=== PATIENT | female | born 1965 | race Two or more races ===

== ENCOUNTER 2024-07-11 05:24 | Emergency (ER) | payer MEDICARE, MEDICAID, SELFPAY ==
[2024-07-11 05:25] VITALS: BMI 32.3
[2024-07-11 05:42] VITALS: BP 208/113; PULSE 110; RESP 19; TEMP 36.9; O2SAT 99
--- NOTE | 2024-07-11 05:54 | XR_ITS ---
Examination: PA chest single view TECHNIQUE: Upright PA chest single view Examination time: July 11, 2024 0604 hours Comparison June 02, 2019 INDICATIONS: Chest pain and popping beginning 3 days ago. FINDINGS: Normal heart size Mild ectasia of thoracic aorta. No pneumonia or pulmonary edema The osseous structures are intact IMPRESSION: No pneumonia or pulmonary edema
--- NOTE | 2024-07-11 05:54 | EDRME_ITS ---
Rapid Medical Screening Exam [facility] Arrival date/time: 07/11/24 05:24 58F with history of asthma, HTN, DM, and meth use presents to ED with 3 days of cough and CP. Chief Complaint: Flu Like Symptoms Vital signs: Vital Signs Temperature 98.4 F 07/11/24 05:42 Pulse Rate 110 H 07/11/24 05:42 Respiratory Rate 19 07/11/24 05:42 Blood Pressure 208/113 H 07/11/24 05:42 Pulse Oximetry (%) 99 07/11/24 05:42 Oxygen Delivery Method Room Air 07/11/24 05:42
[2024-07-11] MEDS: ACETAMINOPHEN w/COD 300-30 TABLET 2 TAB PO (06:11)
[2024-07-11] MEDS: predniSONE 20 MG TABLET 40 MG PO (06:15)
[2024-07-11 06:17] VITALS: BP 159/110
--- NOTE | 2024-07-11 06:28 | PD.EDURI ---
Upper Respiratory Inf. RME/HPI General Chief Complaint: Flu Like Symptoms Stated Complaint: COUGH,CHEST PAIN X 3 DAYS Time Seen by Provider: 07/11/24 06:04 Arrival date/time: 07/11/24 05:24 RME / HPI RME / HPI Narrative: 07/11/24 05:24 58F with history of asthma, HTN, DM, and meth use presents to ED with 3 days of cough and CP. This section includes all my notes and documentations, including HPI, PE, and ED course. Bebo Allen MD HPI: 58-year-old female here with about a week history of worsening cough, productive cough, purulent sputum, and dyspnea. And chest tightness with coughing in the past couple days. No fever or chills. No other complaints. ROS: All negative except as documented in HPI. Physical Exam: General: Alert and oriented. Hacking cough noted. High BP noted. Eyes: Conjunctivae and lids clear. ENT: No nasal congestion. Pharynx normal. TM normal bilaterally. Neck: Supple. Heart: RRR. Lungs: No respiratory distress. Good air movement with bilateral rhonchi. Skin: Warm and dry. Neuro: Alert and oriented X 3. I reviewed all diagnostic test results. My interpretation of the chest x-ray is increased bronchial markings. COVID/influenza negative. At this point, diagnoses include lower respiratory infection. Treatment here included prednisone and two Tylenol #3. Significant improvement noted both subjectively and objectively, including BP. Based on my best medical judgment, made decision no further evaluation or treatment indicated at this time. Patient understands and agrees to the discharge instructions customized and printed, see below. Discharge instructions from Dr. Allen: --No physical exertion for 3 days to help rest the lungs. ?-No smoking or exposure to smoking or pets or dust or cold air. --Zithromax to kill the germs causing the bronchitis. --Prednisone to help decrease the swelling in the airways. --Albuterol 2 puffs every 4-6 hours as needed for cough or shortness of breath. --Tramadol for cough or pain. --See a private doctor on 07/15/2024 for recheck and further care, including your high BP. --Seek immediate medical care with worsening or with any concerns. Instrucciones de lina del Dr. Allen: --No hacer maria teresa?n esfuerzo f?sico belkis 3 d?as para ayudar a que los pulmones descansen. --No fumar ni exponerse al humo del tabaco, a las mascotas, al polvo o al aire fr?o. --Zithromax para matar los g?rmenes que causan la bronquitis. --Prednisona para ayudar a disminuir la hinchaz?n de las v?as respiratorias. --Albuterol 2 inhalaciones cada 4-6 horas seg?n sea necesario para la tos o la falta de aire. --Tramadol para la tos o el dolor. --Consulte a un m?dico privado el 08/11/2024 para que le vuelva a hacer un control y le brinde m?s atenci?n, incluida la presi?n arterial lina. --Busque atenci?n m?dica inmediata si la enfermedad empeora o si tiene alguna inquietud. Bebo Allen MD Related Data Home Medications ?Medication ?Instructions ?Recorded ?Confirmed clonidine HCl 0.3 mg tablet 0.3 mg PO BID ##0 05/06/13 08/03/18 acetaminophen 300 mg-codeine 60 mg 1 tab PO QHSPRN 06/01/18 08/03/18 tablet (Tylenol-Codeine #4) amitriptyline 10 mg tablet 10 mg PO QDAY 06/01/18 08/03/18 amlodipine 5 mg tablet 5 mg PO QDAY 06/01/18 08/03/18 baclofen 10 mg tablet 10 mg PO QDAY 06/01/18 08/03/18 chlorthalidone 50 mg tablet 50 mg PO QDAY 06/01/18 08/03/18 duloxetine 60 mg capsule,delayed 60 mg PO QDAY 06/01/18 08/03/18 release ibuprofen 800 mg tablet 800 mg PO TID PRN Pain 06/01/18 08/03/18 metoprolol tartrate 100 mg tablet 100 mg PO BID 06/01/18 08/03/18 omeprazole 20 mg capsule,delayed 20 mg PO QDAY 06/01/18 08/03/18 release ranitidine HCl 75 mg tablet 50 mg PO BID 06/01/18 08/03/18 tramadol 50 mg tablet 50 mg PO QID 06/01/18 08/03/18 Previous Rx's ?Medication ?Instructions ?Recorded albuterol sulfate 90 mcg/actuation 1 - 2 puff inhalation Q6HR PRN 06/25/17 aerosol inhaler (ProAir HFA) WHEEZING #1 inh cyclobenzaprine 10 mg tablet 10 mg PO TID #14 tabs 08/03/18 meloxicam 7.5 mg tablet 7.5 mg PO QDAY #10 tabs 08/03/18 codeine 10 mg-guaifenesin 100 mg/5 5 ml PO Q6H PRN cough #118 mL 06/02/19 mL oral liquid azithromycin 250 mg tablet See Rx Instructions PO .COMPLEX #6 06/04/19 (Zithromax) tabs azithromycin 500 mg tablet 500 mg PO QDAY 3 days #3 tabs 07/11/24 (Zithromax TRI-MIC) prednisone 20 mg tablet 40 mg PO DAILY 3 days #6 tabs 07/11/24 tramadol 50 mg tablet 50 mg PO Q6H PRN pain #20 tabs 07/11/24 Allergies Allergy/AdvReac Type Severity Reaction Status Date / Time No Known Allergies Allergy Verified 07/11/24 05:28 Course Quality Measures none Orders Category Date Time Status Bedside COVID-19 Antigen Test NOW Care 07/11/24 06:02 Active Bedside Influenza A&B Antigen Test NOW Care 07/11/24 05:36 Completed EKG (ED ONLY) *Do not use* NOW Care 07/11/24 05:36 Completed EKG (ED Only) Stat Exams 07/11/24 05:36 Ordered XR chest 1V portable Stat Exams 07/11/24 05:54 Taken ACETAMINOPHEN w/COD 300-30 [Tylenol w/Cod #3] Med 07/11/24 06:05 Discontinued 2 tab PO X1 ONE predniSONE Med 07/11/24 06:14 Discontinued 40 mg PO X1 ONE predniSONE Med 07/11/24 06:05 Discontinued 60 mg PO X1 ONE Vital Signs Vital signs: Vital Signs Temperature 98.4 F 07/11/24 05:42 Pulse Rate 110 H 07/11/24 05:42 Respiratory Rate 19 07/11/24 05:42 Blood Pressure 208/113 H 07/11/24 05:42 Pulse Oximetry (%) 99 07/11/24 05:42 Oxygen Delivery Method Room Air 07/11/24 05:42 Upper Respiratory Infection Patient data External records [place] [facility] [place] Clinical information provided by:: patient Social determinants that could affect healthcare access:: none Patient has the following chronic illnesses:: Hypertension How is presenting disease/condition affected by chronic disease/condition?: exacerbated by Evaluation data The following diagnostics were reviewed and interpreted by me:: lab results, radiology exam(s) and EKG tracing(s) Lab and/or radiology exams considered but not ordered:: None Interpretation Summary: Lower respiratory infection Medications / Prescriptions Medications or Prescriptions considered but not ordered:: None Medication administrations:: Medication Administration History Discontinued Medications Acetaminophen/Codeine Phosphate (Acetaminophen W/Cod 300-30 Tablet) 2 tab PO X1 ONE Stop: 07/11/24 06:06 Last Admin: 07/11/24 06:11 Dose: 2 tab Documented By: ARTURO Prednisone (Prednisone 20 Mg Tablet) 60 mg PO X1 ONE Stop: 07/11/24 06:06 Last Admin: 07/11/24 06:15 Dose: Not Given Documented By: ARTURO Non-Admin Reason: Cancelled by Provider Prednisone (Prednisone 20 Mg Tablet) 40 mg PO X1 ONE Stop: 07/11/24 06:15 Last Admin: 07/11/24 06:15 Dose: 40 mg Documented By: ARTURO Prednisone and two Tylenol #3 Consultations Consultation(s) initiated? (list below): No Diagnosis Upper Respiratory Differential Diagnosis: upper respiratory infection, croup, otitis media, sinusitis, viral infection, bronchitis, influenza, pharyngitis and other (Pneumonia, influenza, croup) Most likely diagnosis given after review of the tests above:: Lower respiratory infection Admission Indicated Admission indicated?: not indicated Explain why admission is indicated or not indicated:: Admission criteria not met Admission Request Was there a request for admission?: No Disposition Plan Disposition Plan: Discharge Discharge Attestation Discharge Attestation: The patient and all family members were given an opportunity to ask questions and understood the discharge instructions. Discharge instructions specifically effects, indications for sooner follow up or return to the emergency department, and the expected course of current diagnosis. Patient condition: Stable Discharge Plan Plan Patient Disposition: HOME (Self Care) Prescriptions/Referrals Prescriptions/Med Rec: New prednisone 20 mg tablet 40 mg PO DAILY 3 Days Qty: 6 0RF Taper: Prednisone Taper 20 mg DAILY for 2 Days and 0 Hour 10 mg DAILY for 2 Days and 0 Hour 5 mg DAILY for 7 Days and 0 Hour azithromycin [Zithromax TRI-MIC] 500 mg tablet 500 mg PO QDAY 3 Days Qty: 3 0RF tramadol 50 mg tablet 50 mg PO Q6H MDD 4 PRN (Reason: pain) Qty: 20 0RF No Action codeine-guaifenesin 10-100 mg/5 mL liquid 5 ml PO Q6H PRN (Reason: cough) Qty: 118 0RF clonidine HCl 0.3 MG tablet 0.3 mg PO BID Qty: 0 albuterol sulfate [ProAir HFA] 8.5 GM HFA aerosol inhaler 1 - 2 puff Inhalation Q6HR PRN (Reason: WHEEZING) Qty: 1 0RF Rx Instructions: Please give and use spacer azithromycin [Zithromax] 250 mg tablet See Rx Instructions PO .COMPLEX Qty: 6 0RF Rx Instructions: take 2 tablets (500 mg) today (day 1), then 1 tablet (250 mg) for 4 days (days 2-5) PO amitriptyline 10 mg Tablet 10 mg PO QDAY ibuprofen 800 mg Tablet 800 mg PO TID PRN (Reason: Pain) metoprolol tartrate 100 mg Tablet 100 mg PO BID amlodipine 5 mg Tablet 5 mg PO QDAY chlorthalidone 50 mg Tablet 50 mg PO QDAY tramadol 50 mg Tablet 50 mg PO QID ranitidine HCl 75 mg Tablet 50 mg PO BID baclofen 10 mg Tablet 10 mg PO QDAY omeprazole 20 mg Capsule,Delayed Release(Dr/Ec) 20 mg PO QDAY acetaminophen-codeine [Tylenol-Codeine #4] 300-60 mg Tablet 1 tab PO QHSPRN duloxetine 60 mg Capsule,Delayed Release(Dr/Ec) 60 mg PO QDAY cyclobenzaprine 10 mg tablet 10 mg PO TID Qty: 14 0RF meloxicam 7.5 mg tablet 7.5 mg PO QDAY Qty: 10 0RF Problem List Clinical Impression: Lower respiratory infection Patient/Caregiver Discharge Instructions Discharge Activity: activity as tolerated Education Materials: ED Bronchitis with Wheezing (Adult) Additional Instructions: Discharge instructions from Dr. Allen: --No physical exertion for 3 days to help rest the lungs. ?-No smoking or exposure to smoking or pets or dust or cold air. --Zithromax to kill the germs causing the bronchitis. --Prednisone to help decrease the swelling in the airways. --Albuterol 2 puffs every 4-6 hours as needed for cough or shortness of breath. --Tramadol for cough or pain. --See a private doctor on 07/15/2024 for recheck and further care, including your high BP. --Seek immediate medical care with worsening or with any concerns. Instrucciones de lina del Dr. Allen: --No hacer maria teresa?n esfuerzo f?sico belkis 3 d?as para ayudar a que los pulmones descansen. --No fumar ni exponerse al humo del tabaco, a las mascotas, al polvo o al aire fr?o. --Zithromax para matar los g?rmenes que causan la bronquitis. --Prednisona para ayudar a disminuir la hinchaz?n de las v?as respiratorias. --Albuterol 2 inhalaciones cada 4-6 horas seg?n sea necesario para la tos o la falta de aire. --Tramadol para la tos o el dolor. --Consulte a un m?dico privado el 08/11/2024 para que le vuelva a hacer un control y le brinde m?s atenci?n, incluida la presi?n arterial lina. --Busque atenci?n m?dica inmediata si la enfermedad empeora o si tiene alguna inquietud. Print Language: Malay Stand Alone Forms: Ana Award Info., Patient Portal Info Letter
== END 2024-07-11 06:32 | disposition home or self-care (01) ==
LOC: SERX 07:17
PROVIDERS: Emergency Provider Emergency Medicine; PCP Family Medicine
DX: J22 Unspecified acute lower respiratory infection (principal); I10 Essential (primary) hypertension
CPT/HCPCS: 71045; 80053; 83880; 84484; 85025; 87400; 87811; 93005; 99283; J7512; A9270

== ENCOUNTER → 2024-09-02 | Outpatient (CLI) | payer OTHER, MEDICAID, SELFPAY ==
[2024-09-02 10:44] LABS: Anion Gap 9 (7-16); BUN/Creatinine Ratio 20 Ratio (12-20); Blood Urea Nitrogen 20 mg/dL (9-23); Calcium 10.4 mg/dL (8.3-10.6); Carbon Dioxide 30.7 mMol/L (20.0-31.0); Chloride 102 mMol/L (98-107); Glucose 136 mg/dL (74-106); Osmolality,Calculated 287 (275-295); Potassium 4.2 mMol/L (3.4-5.1); Sodium 142 mMol/L (136-145); eGFR > 60 See Note
[2024-09-02 10:46] LABS: Creatinine MALB Rnd Ur 185 mg/dL (30-125); Microalbumin Creat Ratio 17 mg/gCrea (<30); Microalbumin, Random Urine 32 mg/L (0-300)
[2024-09-02 11:13] LABS: Glucose Estimated Average 154 mg/dL (80-131)
== END | disposition home or self-care (01) ==
LOC: COPL 09:14
PROVIDERS: PCP Family Medicine; Referring Provider Family Medicine; Visit Provider Family Medicine
DX: Z12.11 Encounter for screening for malignant neoplasm of colon (principal); E11.42 Type 2 diabetes mellitus with diabetic polyneuropathy; E78.1 Pure hyperglyceridemia; Z12.12 Encounter for screening for malignant neoplasm of rectum
CPT/HCPCS: 36415; 80048; 82043; 82570; 83036

== ENCOUNTER → 2024-09-23 | Outpatient (CLI) | payer OTHER, MEDICAID, SELFPAY ==
--- NOTE | 2024-09-23 08:45 | XR_ITS ---
Examination: Screening digital mammography, bilateral Computer aided detection 3-D breast Tomosynthesis, bilateral Date and time of exam: September 23, 2024 0833 hours Compared to mammograms dating to January 13, 2011 Indication: Screening Technique: Nonmagnified MLO, CC views of the breasts to been obtained, reconstructed from 3-D Tomosynthesis images. R2 computer aided detection program utilized for evaluation of suspicious masses and/or abnormal calcifications. 3-D Tomosynthesis images obtained. Findings: Scattered areas of fibroglandular density. Benign calcifications. No interval suspicious masses Impression: BI-RADS category II: Benign Findings. Recommend 1 year follow-up mammogram.
== END | disposition home or self-care (01) ==
LOC: CDIM 08:04
PROVIDERS: PCP Family Medicine; Referring Provider Family Medicine; Visit Provider Family Medicine
DX: Z12.31 Encounter for screening mammogram for malignant neoplasm of breast (principal); R92.323 Mammographic fibroglandular density, bilateral breasts; R92.1 Mammographic calcification found on diagnostic imaging of breast
CPT/HCPCS: 77063; 77067

== ENCOUNTER → 2025-04-28 | Outpatient (CLI) | payer MEDICARE, MEDICAID, SELFPAY ==
[2025-04-28 11:32] LABS: Basophils # (Auto) 0.0 Thou/mm3 (0.0-0.2); Basophils % (Auto) 1 % (0-2.5); Eosinophils # (Auto) 0.2 Thou/mm3 (0.0-0.5); Eosinophils % (Auto) 4 % (0-10); Hematocrit 40.0 % (36.0-46.0); Hemoglobin 13.5 g/dL (12.0-16.0); Immature Granulocytes Auto 0.02 Thou/mm3 (0.00-0.00); Lymphocytes # (Auto) 2.2 Thou/mm3 (1.0-4.8); Lymphocytes % (Auto) 36 % (10-50); Mean Corpuscular HGB Conc 33.8 g/dl (31.0-37.0); Mean Corpuscular Hemoglobin 28.0 pg (25.0-35.0); Mean Corpuscular Volume 83 fL (80-100); Monocytes # (Auto) 0.5 Thou/mm3 (0.0-0.8); Monocytes % (Auto) 7 % (0-12); Neutrophils # (Auto) 3.2 Thou/mm3 (1.8-7.7); Neutrophils % (Auto) 52 % (37-80); Nucleated Red Blood Cell # 0.00 Thou/mm3 (0.00-0.00); Nucleated Red Blood Cell % 0 /100 WBC (0); Platelet Count 236 Thou/mm3 (140-440); RDW Standard Deviation 39.2 fL (36.4-46.3); Red Blood Count 4.82 Miln/mm3 (4.00-5.20); White Blood Count 6.1 Thou/mm3 (3.6-11.0)
[2025-04-28 11:42] LABS: Creatinine MALB Rnd Ur 230 mg/dL (30-125); Microalbumin Creat Ratio 27 mg/gCrea (<30); Microalbumin, Random Urine 63 mg/L (0-300)
[2025-04-28 11:45] LABS: Alanine Aminotransferase 26 U/L (10-49); Albumin, Serum 4.9 gm/dL (3.4-4.8); Alkaline Phosphatase 148 U/L (46-116); Anion Gap 11 (7-16); Aspartate Amino Transferase 30 U/L (0-34); BUN/Creatinine Ratio 16 Ratio (12-20); Bilirubin,Direct 0.1 mg/dL (0.0-0.3); Bilirubin,Total 0.4 mg/dL (0.3-1.2); Blood Urea Nitrogen 19 mg/dL (9-23); Calcium 9.6 mg/dL (8.3-10.6); Carbon Dioxide 28.7 mMol/L (20.0-31.0); Cardiac Risk Estimate 3.6 RATIO (3.7-5.6); Chloride 102 mMol/L (98-107); Cholesterol 192 mg/dL (132-200); Creatinine (Component) 1.2 mg/dL (0.6-1.3); Glucose 145 mg/dL (74-106); HDL Cholesterol 54 mg/dL (40-60); LDL Cholesterol,Calculated 108 mg/dL (0-130); Osmolality,Calculated 288 (275-295); Potassium 3.6 mMol/L (3.4-5.1); Sodium 142 mMol/L (136-145); Total Protein 7.3 gm/dL (5.7-8.2); Triglycerides 152 mg/dL (30-150); eGFR 52 See Note
[2025-04-28 11:53] LABS: Glucose Estimated Average 183 mg/dL (80-131); Hemoglobin A1C 8.0 % Hgb (4.8-6.0)
== END | disposition home or self-care (01) ==
LOC: COPL 09:41
PROVIDERS: PCP Family Medicine; Referring Provider Family Medicine; Visit Provider Family Medicine
DX: I10 Essential (primary) hypertension (principal); E11.42 Type 2 diabetes mellitus with diabetic polyneuropathy; E78.1 Pure hyperglyceridemia
CPT/HCPCS: 36415; 80048; 80061; 80076; 82043; 82570; 83036; 85025

== ENCOUNTER → 2025-04-29 | Outpatient (CLI) | payer MEDICARE, MEDICAID, SELFPAY ==
[2025-05-01 06:35] LABS: Fecal Globin Result NOT DETECTED (NOT DETECTED)
== END | disposition home or self-care (01) ==
LOC: SLDO 10:52
PROVIDERS: PCP Family Medicine; Referring Provider Family Medicine; Visit Provider Family Medicine
DX: Z12.11 Encounter for screening for malignant neoplasm of colon (principal); Z12.12 Encounter for screening for malignant neoplasm of rectum
CPT/HCPCS: 82274; G0328

== ENCOUNTER 2025-06-11 08:09 | Emergency (ER) | payer OTHER, MEDICAID, SELFPAY ==
[2025-06-11 08:10] VITALS: BMI 35.5
[2025-06-11 08:23] VITALS: BP 183/112; PULSE 100; RESP 20; TEMP 36.8; O2SAT 96; BMI 36.9
--- NOTE | 2025-06-11 08:31 | XR_ITS ---
Study: Chest 2 view. INDICATION: Difficulty breathing for 3 days. FINDINGS: PA and lateral upright chest radiographs at 1011 hours 11 June 2025 demonstrate fully expanded lungs free from alveolar infiltrates and nodules. There are no effusions. The heart is normal in size and contour. The ascending and descending aortic segments are substantially tortuous. The aortic arch is calcified. Superior mediastinal structures are narrow. There is no hilar adenopathy. Vasculature is normal in volume. IMPRESSION: No acute process. No change from 11 July 2024.
[2025-06-11 09:43] LABS: Basophils # (Auto) 0.0 Thou/mm3 (0.0-0.2); Basophils % (Auto) 0 % (0-2.5); Eosinophils # (Auto) 0.3 Thou/mm3 (0.0-0.5); Eosinophils % (Auto) 5 % (0-10); Hematocrit 38.7 % (36.0-46.0); Hemoglobin 13.0 g/dL (12.0-16.0); Immature Granulocytes Auto 0.02 Thou/mm3 (0.00-0.00); Lymphocytes # (Auto) 1.2 Thou/mm3 (1.0-4.8); Lymphocytes % (Auto) 18 % (10-50); Mean Corpuscular HGB Conc 33.6 g/dl (31.0-37.0); Mean Corpuscular Hemoglobin 27.4 pg (25.0-35.0); Mean Corpuscular Volume 82 fL (80-100); Monocytes # (Auto) 0.6 Thou/mm3 (0.0-0.8); Monocytes % (Auto) 9 % (0-12); Neutrophils # (Auto) 4.6 Thou/mm3 (1.8-7.7); Neutrophils % (Auto) 68 % (37-80); Nucleated Red Blood Cell # 0.00 Thou/mm3 (0.00-0.00); Nucleated Red Blood Cell % 0 /100 WBC (0); Platelet Count 200 Thou/mm3 (140-440); RDW Standard Deviation 39.8 fL (36.4-46.3); Red Blood Count 4.74 Miln/mm3 (4.00-5.20); White Blood Count 6.7 Thou/mm3 (3.6-11.0)
[2025-06-11 10:07] LABS: Alanine Aminotransferase 20 U/L (10-49); Albumin, Serum 4.3 gm/dL (3.4-4.8); Albumin/Globulin Ratio 1.5 (1.2-2.2); Alkaline Phosphatase 138 U/L (46-116); Anion Gap 12 (7-16); Aspartate Amino Transferase 23 U/L (0-34); BUN/Creatinine Ratio 18 Ratio (12-20); Bilirubin,Total 0.3 mg/dL (0.3-1.2); Blood Urea Nitrogen 18 mg/dL (9-23); Calcium 8.9 mg/dL (8.3-10.6); Calcium (Corrected) 8.9 mg/dL (8.5-10.1); Carbon Dioxide 26.3 mMol/L (20.0-31.0); Chloride 102 mMol/L (98-107); Creatinine (Component) 1.0 mg/dL (0.6-1.3); Estimated Creatinine Clearance 71.9 mL/min (>60); Globulin 2.8 gm/dL (2.3-3.5); Glucose 262 mg/dL (74-106); Osmolality,Calculated 290 (275-295); Potassium 3.2 mMol/L (3.4-5.1); Sodium 140 mMol/L (136-145); Total Protein 7.1 gm/dL (5.7-8.2); Troponin I < 0.020 ng/mL (0.0-0.045); eGFR > 60 See Note
--- NOTE | 2025-06-11 10:41 | PD.EDURI ---
Upper Respiratory Inf. RME/HPI General Chief Complaint: Flu Like Symptoms Stated Complaint: DIFF BREATHING, COUGH, CHEST HURTS Time Seen by Provider: 06/11/25 08:12 Arrival date/time: 06/11/25 08:09 59-year-old female presents to the Emergency Department for complaint of cough, congestion runny nose and generalized body aches patient reports symptom onset 2 to 3 days ago reports multiple sick contacts at home. Limitations: no limitations Related Data Home Medications ?Medication ?Instructions ?Recorded ?Confirmed clonidine HCl 0.3 mg tablet 0.3 mg PO BID ##0 05/06/13 08/03/18 acetaminophen 300 mg-codeine 60 mg 1 tab PO QHSPRN 06/01/18 08/03/18 tablet (Tylenol-Codeine #4) amitriptyline 10 mg tablet 10 mg PO QDAY 06/01/18 08/03/18 amlodipine 5 mg tablet 5 mg PO QDAY 06/01/18 08/03/18 baclofen 10 mg tablet 10 mg PO QDAY 06/01/18 08/03/18 chlorthalidone 50 mg tablet 50 mg PO QDAY 06/01/18 08/03/18 duloxetine 60 mg capsule,delayed 60 mg PO QDAY 06/01/18 08/03/18 release ibuprofen 800 mg tablet 800 mg PO TID PRN Pain 06/01/18 08/03/18 metoprolol tartrate 100 mg tablet 100 mg PO BID 06/01/18 08/03/18 omeprazole 20 mg capsule,delayed 20 mg PO QDAY 06/01/18 08/03/18 release ranitidine HCl 75 mg tablet 50 mg PO BID 06/01/18 08/03/18 tramadol 50 mg tablet 50 mg PO QID 06/01/18 08/03/18 Previous Rx's ?Medication ?Instructions ?Recorded albuterol sulfate 90 mcg/actuation 1 - 2 puff inhalation Q6HR PRN 06/25/17 aerosol inhaler (ProAir HFA) WHEEZING #1 inh cyclobenzaprine 10 mg tablet 10 mg PO TID #14 tabs 08/03/18 meloxicam 7.5 mg tablet 7.5 mg PO QDAY #10 tabs 08/03/18 codeine 10 mg-guaifenesin 100 mg/5 5 ml PO Q6H PRN cough #118 mL 06/02/19 mL oral liquid azithromycin 250 mg tablet See Rx Instructions PO .COMPLEX #6 06/04/19 (Zithromax) tabs tramadol 50 mg tablet 50 mg PO Q6H PRN pain #20 tabs 07/11/24 Ventolin HFA 90 mcg/actuation 2 puff inhalation Q6H PRN 06/11/25 aerosol inhaler (albuterol sulfate) shortness of breath or wheezing #18 grams benzonatate 100 mg capsule 100 mg PO TID #14 caps 06/11/25 ibuprofen 800 mg tablet 800 mg PO TID PRN pain #30 tabs 06/11/25 Allergies Allergy/AdvReac Type Severity Reaction Status Date / Time No Known Allergies Allergy Verified 06/11/25 08:12 Review of Systems Review of Systems Systems Reviewed: All systems reviewed, normal except as documented Constitutional Constitutional: Reports system reviewed and no additional complaints, except as documented, Denies fever(s) and Reports headache(s) Eyes Eyes: Reports system reviewed and no additional complaints, except as documented and Denies blurry vision ENT Ears, Nose, Mouth, and Throat: Reports system reviewed and no additional complaints, except as documented, Reports headache(s), Reports nasal congestion and Reports nasal discharge Cardiovascular Cardiovascular: Reports system reviewed and no additional complaints, except as documented, Denies chest pain and Denies dyspnea Respiratory Respiratory: Reports system reviewed and no additional complaints, except as documented, Reports chest congestion, Reports cough and Denies dyspnea Gastrointestinal Gastrointestinal: Reports system reviewed and no additional complaints, except as documented and Denies abdominal pain Integumentary/Breasts Skin/Breast: Reports system reviewed and no additional complaints, except as documented and Denies rash Neurologic Neurologic: Reports system reviewed and no additional complaints, except as documented, Reports as per HPI and Reports headache(s) Past Medical History Past Medical History NEUROLOGIC: Negative Neurological Disorders CARDIAC: Negative Cardiac Disorders ED Exam General Limitations: Present no limitations General appearance: Present alert and in no apparent distress Head Head exam: Present atraumatic, normocephalic and normal inspection Eye Eye exam: Present normal appearance, PERRL and EOMI; Absent conjunctival injection ENT ENT exam: Present normal exam, normal oropharynx and mucous membranes moist Neck Neck exam: Present normal inspection, full ROM and trachea midline Chest Chest inspection: Present normal inspection and symmetric chest wall rise Respiratory Respiratory exam: Present normal lung sounds bilaterally; Absent respiratory distress, wheezes, stridor, accessory muscle use or prolonged expiratory phase Cardiovascular Cardiovascular exam: Present regular rate, normal rhythm and normal heart sounds Abdominal Exam Abdominal exam: Present soft and normal bowel sounds; Absent distention, tenderness, guarding, rebound or rigidity Extremities Exam Extremities exam: Present normal inspection and full ROM Back Exam Back exam: Present normal inspection and full ROM Neurological Exam Neurological exam: Present alert, oriented X3 and CN II-XII intact Psychiatric Psychiatric exam: Present normal affect and normal mood Skin Skin exam: Present warm, dry, intact and normal color Course Quality Measures none Orders Category Date Time Status Bedside Influenza A&B Antigen Test NOW Care 06/11/25 08:31 Completed XR chest 2V Stat Exams 06/11/25 08:31 Completed CBC Stat Lab 06/11/25 09:25 Completed CMP [Comprehensive Metabolic Panel] Stat Lab 06/11/25 09:25 Completed Troponin I Stat Lab 06/11/25 09:25 Completed Vital Signs Vital signs: Vital Signs Temperature 98.3 F 06/11/25 08:23 Pulse Rate 100 06/11/25 08:23 Respiratory Rate 20 06/11/25 08:23 Blood Pressure 183/112 H 06/11/25 08:23 Pulse Oximetry (%) 96 06/11/25 08:23 Oxygen Delivery Method Room Air 06/11/25 08:23 o2 sat 96% r.a wnl Upper Respiratory Infection MDM Narrative MDM Narrative:: 59-year-old female presents to the Emergency Department for complaint of cough, congestion runny nose and generalized body aches patient reports symptom onset 2 to 3 days ago reports multiple sick contacts at home. Clinically patient does not appear ill or toxic no acute distress Patient hemodynamically stable O2 saturation 96% Patient reports no acute chest pain no acute shortness of breath Patient discharged home in no distress to follow-up with primary care doctor in the next 24 to 48 hours and for any worsening symptoms to return to the ER immediately Patient data External records reviewed:: [facility] previous records Clinical information provided by:: patient Social determinants that could affect healthcare access:: none Patient has the following chronic illnesses:: see hx How is presenting disease/condition affected by chronic disease/condition?: exacerbated by Evaluation data The following diagnostics were reviewed and interpreted by me:: lab results and radiology exam(s) Lab and/or radiology exams considered but not ordered:: Labs and radiology obtained Interpretation Summary: reviewed by me Medications / Prescriptions Medications or Prescriptions considered but not ordered:: given Medication administrations:: Given Consultations Consultation(s) initiated? (list below): No Diagnosis Upper Respiratory Differential Diagnosis: upper respiratory infection, viral infection, bronchitis and influenza Most likely diagnosis given after review of the tests above:: uri Admission Indicated Admission indicated?: not indicated Admission Request Was there a request for admission?: No Disposition Plan Disposition Plan: Discharge Discharge Attestation Discharge Attestation: The patient and all family members were given an opportunity to ask questions and understood the discharge instructions. Discharge instructions specifically effects, indications for sooner follow up or return to the emergency department, and the expected course of current diagnosis. Patient condition: Stable Discharge Plan Plan Patient Disposition: HOME (Self Care) Discharge Disposition comment: Stable Prescriptions/Referrals Prescriptions/Med Rec: New ibuprofen 800 mg tablet 800 mg PO TID PRN (Reason: pain) Qty: 30 0RF benzonatate 100 mg capsule 100 mg PO TID Qty: 14 0RF albuterol sulfate [Ventolin HFA] 90 mcg/actuation HFA aerosol inhaler 2 puff inhalation Q6H PRN (Reason: shortness of breath or wheezing) Qty: 18 0RF No Action codeine-guaifenesin 10-100 mg/5 mL liquid 5 ml PO Q6H PRN (Reason: cough) Qty: 118 0RF clonidine HCl 0.3 MG tablet 0.3 mg PO BID Qty: 0 albuterol sulfate [ProAir HFA] 8.5 GM HFA aerosol inhaler 1 - 2 puff Inhalation Q6HR PRN (Reason: WHEEZING) Qty: 1 0RF Rx Instructions: Please give and use spacer azithromycin [Zithromax] 250 mg tablet See Rx Instructions PO .COMPLEX Qty: 6 0RF Rx Instructions: take 2 tablets (500 mg) today (day 1), then 1 tablet (250 mg) for 4 days (days 2-5) PO amitriptyline 10 mg Tablet 10 mg PO QDAY ibuprofen 800 mg Tablet 800 mg PO TID PRN (Reason: Pain) metoprolol tartrate 100 mg Tablet 100 mg PO BID amlodipine 5 mg Tablet 5 mg PO QDAY chlorthalidone 50 mg Tablet 50 mg PO QDAY tramadol 50 mg Tablet 50 mg PO QID ranitidine HCl 75 mg Tablet 50 mg PO BID baclofen 10 mg Tablet 10 mg PO QDAY omeprazole 20 mg Capsule,Delayed Release(Dr/Ec) 20 mg PO QDAY acetaminophen-codeine [Tylenol-Codeine #4] 300-60 mg Tablet 1 tab PO QHSPRN duloxetine 60 mg Capsule,Delayed Release(Dr/Ec) 60 mg PO QDAY cyclobenzaprine 10 mg tablet 10 mg PO TID Qty: 14 0RF meloxicam 7.5 mg tablet 7.5 mg PO QDAY Qty: 10 0RF tramadol 50 mg tablet 50 mg PO Q6H MDD 4 PRN (Reason: pain) Qty: 20 0RF Referrals: Justin James MD [Primary Care Provider, Family Practice] - In 1 week Problem List Clinical Impression: URI (upper respiratory infection) Patient/Caregiver Discharge Instructions Education Materials: ED URI, Viral, No Abx (Adult) Additional Instructions: Please follow up with your primary care doctor in the next 24-48hrs for any worsening symptoms return here immediately Print Language: Albanian Stand Alone Forms: Ana Award Info., Work/School Release, Patient Portal Info Letter PA/COLLET GLUER Supervising Physician PA/COLLET GLUER Supervising Physician: Dr. Allen
[2025-06-11 12:47] VITALS: BP 178/84; PULSE 87; RESP 19; TEMP 37.2; O2SAT 97
== END 2025-06-11 12:48 | disposition home or self-care (01) ==
PROVIDERS: Nurse Practitioner Primary Care; Emergency Provider Emergency Medicine; PCP Family Medicine
DX: J06.9 Acute upper respiratory infection, unspecified (principal)
CPT/HCPCS: 36415; 71046; 80053; 84484; 85025; 87502; 99283